=== PATIENT | female | born 1975 | race Caucasian/White ===

== ENCOUNTER 2016-10-20 09:23 | Inpatient (IN) | payer BC ==
[2016-10-20 11:31] VITALS: BMI 28.8
--- NOTE | 2016-10-20 13:01 | HP ---
COWS - Scale Resting Pulse: 0= [place] 80 or Below Sweatin= Chills/Flushing Restless Observation: 3= Extraneous Movement Pupil Size: 0= Normal to Room Light Bone or Joint Aches: 4=Acute Joint/Muscle Pain Runny Nose/ Eye Tearin= Nasal Congestion GI Upset > 30mins: 0= None Tremor Observation: 1= Tremor [place], Not Seen Yawning Observation: 1= 1-2x During Session Anxiety or Irritability: 2=Irritable/Anxious Goose Flesh Skin: 0=Smooth Skin COWS Score: 13 CIWA Score - CIWA Score Nausea/Vomitin-No Nausea/No Vomiting Muscle Tremors: 3 Anxiety: 5 Agitation: 4-Moderately Restless Paroxysmal Sweats: 1-Minimal Palms Moist Orientation: 0-Oriented Tacttile Disturbances: 3-Moderate Itch/Numb/Burn Auditory Disturbances: 0-None Visual Disturbances: 0-None Headache: 0-None Present CIWA-Ar Total Score: 16 Admission [facility] - HPI Chief Complaint: DETOX TX FOR HEROIN AND ALCOHOL DEPENDENCE. History of Present Illness: 41 Y/O FEMALE WITH A HX OF HEROIN AND ALCOHOL AND CRACK/COCAINE DEPENDENCE SEEKING DETOX TX. Exam Limitations: No Limitations - Ebola screening Have you traveled outside of the country in the last 21 days: No Have you had contact with anyone from an Ebola affected area: No Have you been sick,other than usual withdrawal symptoms: No Do you have a fever: No - Review of Systems Constitutional: Chills, Night Sweats, Changes in sleep, Unintentional Wgt. Loss EENT: reports: Blurred Vision, Nose Congestion Respiratory: reports: Shortness of Breath (HX ASTHMA), Wheezing Cardiac: reports: Lightheadedness GI: reports: Constipated, Diarrhea, Nausea, Vomiting, Indigestion, Abdominal cramping : reports: No Symptoms Reported Musculoskeletal: reports: Back Pain, Joint Pain, Muscle Pain Integumentary: reports: Bruising Neuro: reports: Headache, Tremors, Dizziness Endocrine: reports: No Symptoms Reported Hematology: reports: Easy Bruising Psychiatric: reports: Orientated x3, Anxious Other Systems: Reviewed and Negative Patient History - Patient Medical History Hx Anemia: No Hx Asthma: Yes (MDI) Hx Chronic Obstructive Pulmonary Disease (COPD): No Hx Cardiac Disorders: No Hx Hypertension: No Hx Hypercholesterolemia: No HX Cerebrovascular Accident: No Hx Seizures: No Hx Diabetes: No Hx Gastrointestinal Disorders: No Hx Genitourinary Disorders: No Hx Sexually Transmitted Disorders: No Hx Renal Disease (ESRD): No Hx Thyroid Disease: No Hx Human Immunodeficiency Virus (HIV): No (NEGATIVE HX) Hx Hepatitis C: No (NEGATIVE HX) Hx Depression: No (DENIES) Hx Suicide Attempt: No (DENIES) Hx Bipolar Disorder: No Hx Schizophrenia: No - Patient Surgical History Past Surgical History: No Hx Neurologic Surgery: No Hx Cataract Extraction: No Hx Cardiac Surgery: No Hx Lung Surgery: No Hx Breast Surgery: No Hx Breast Biopsy: No Hx Abdominal Surgery: No Hx Appendectomy: No Hx Cholecystectomy: No Hx Genitourinary Surgery: No Hx Section: No Hx Orthopedic Surgery: No Hx Hysterectomy: No Anesthesia Reaction: No - PPD History Previous Implant?: Yes Documented Results: Negative w/o proof Implanted On Prior [facility] Admission?: No PPD to be Administered?: Yes - Reproductive History Patient is a Female of Child Bearing Age (11 -55 yrs old): Yes Last Menstrual Period: 10/13/16 Patient : No - Smoking Cessation Smoking history: Never smoked (PT STATES "I DON'T SMOKE CIGARRETE, PERIOD".) Have you smoked in the past 12 months: No Hx Chewing Tobacco Use: No Initiated information on smoking cessation: No - Substance & Tx. History Hx Alcohol Use: Yes (LIQUOR/BEER) Hx Substance Use: Yes (HEROIN) Substance Use Type: Alcohol, Heroin Hx Substance Use Treatment: Yes (DID NOT GIVE INFORMATION LAST TX) - Substances Abused Alcohol Route: Oral Frequency: Daily Amount used: 2 PTS LIQUOR/BEER 3 CAN Age of first use: 20 Date of Last Use: 10/20/16 Heroin Route: Inhalation Frequency: Daily Amount used: 10-20 BAGS Age of first use: 20 Date of Last Use: 10/20/16 Family Disease History - Family Disease History Family Disease History: Diabetes: Mother Admission Physical Exam [facility] - Vital Signs Vital Signs: Vital Signs - 24 hr 10/20/16 11:27 Temperature 96.5 F L Pulse Rate 20 L Respiratory 18 Rate Blood Pressure 113/70 - Physical General Appearance: Yes: Moderate Distress, Alcohol on Breath, Intoxicated, Irritable, Anxious, Other (PT EXHIBITING AGITATION/INPATIENCE AND VERY IRRITABLE AND ANGRY WHEN ASKED ASSESSMENT QUESTIONS.) HEENTM: Yes: EOMI, Normocephalic, STEVE, Pharynx Normal, Nasal Congestion, Rhinorrhea Respiratory: Yes: Chest Non-Tender, Lungs Clear, Normal Breath Sounds, No Respiratory Distress Neck: Yes: Supple, Trachea in good position Breast: Yes: Breast Exam Deferred Cardiology: Yes: Regular Rhythm, Regular Rate, S1, S2 Abdominal: Yes: Normal Bowel Sounds, Non Tender, Soft Genitourinary: Yes: Other (N/C) Musculoskeletal: Yes: full range of Motion, Gait Steady Extremities: Yes: Normal Range of Motion, Non-Tender Neurological: Yes: sales vice president II-XII NML intact, Fully Oriented, Alert, Motor Strength 5/5 Integumentary: Yes: Dry, Warm, Other (ECHYMOTIC AREAS ON ANKLES) Lymphatic: Yes: Within Normal Limits - Diagnostic (1) Uncomplicated opioid dependence Current Visit: Yes Status: Acute (2) Alcohol dependence with uncomplicated withdrawal Current Visit: Yes Status: Acute (3) History of asthma Current Visit: Yes Status: Chronic Cleared for Admission [facility] - Detox or Rehab [facility] Level of Care: Medically Managed Detox Regimen/Protocol: Methadone/Librium [facility] Breath Alcohol Content Breath Alcohol Content: 0.039 Urine Drug Screen - Results Drug Screen Negative: No Urine Drug Screen Results: FAISAL-Cocaine, OPI-Opiates
[2016-10-20] MEDS ORDERED: MAGNESIUM CITRATE 300 ML BOTTLE PO PRN (15:18)
[2016-10-20] MEDS ORDERED: MAG HYDROX/AL HYDROX/SIMETH 30 ML UNIT-DOSE CUP PO PRN (15:18)
[2016-10-20] MEDS ORDERED: guaiFENesin/D-METHORPHAN HB 10 ML UNIT-DOSE CUPS PO PRN (15:18)
[2016-10-20] MEDS ORDERED: P-EPHED 60MG/TRIPROLIDI 2.5MG TABLET PO PRN (15:18)
[2016-10-20] MEDS ORDERED: MENTHOL/PHENOL 1 EACH UD MM PRN (15:18)
[2016-10-20] MEDS ORDERED: LOPERAMIDE HCL 2 MG CAPSULE PO PRN (15:18)
[2016-10-20] MEDS ORDERED: ACETAMINOPHEN 325 MG TABLET (FP) PO PRN (15:18)
[2016-10-20] MEDS ORDERED: IBUPROFEN 400 MG TABLET (FP) PO PRN (15:18)
[2016-10-20] MEDS ORDERED: METHADONE HCL 10 MG TABLET (FOR DETOX USE ONLY) PO ONE ×2 (17:00→23:00)
[2016-10-20] MEDS: chlordiazePOXIDE HCL 25 MG CAPSULE PO SCH ×2 (17:06→22:16)
[2016-10-20] MEDS ORDERED: DOCUSATE SODIUM 100 MG CAPSULE (FP) PO SCH (22:00)
[2016-10-20] MEDS: diphenhydrAMINE HCL 50 MG CAPSULE PO PRN (22:15)
[2016-10-20] MEDS: THIAMINE HCL 100 MG TABLET (FP) PO SCH (22:15)
[2016-10-20] MEDS: ALBUTEROL SO4 6.7 GM HFA INHALER IH PRN (22:34)
[2016-10-20 23:08] LABS: URINE APPEARANCE SLCLOUDY; URINE COLOR AMBER; URINE GLUCOSE (UA) NEGATIVE (NEGATIVE); URINE KETONE TRACE (NEGATIVE); URINE NITRITE POSITIVE (NEGATIVE); URINE UROBILINOGEN 4.0 E.U/dl mg/dL (0.2-1.0)
[2016-10-20 23:13] LABS: URINE BLOOD 1+ (NEGATIVE); URINE LEUK ESTERASE 1+ (NEGATIVE); URINE PROTEIN 1+ (NEGATIVE)
[2016-10-20 23:20] LABS: URINE HYALINE CAST 3 /lpf; URINE MUCUS MANY; URINE RBC 37 /hpf (0-3); URINE WBC 52 /hpf (3-5)
[2016-10-21] MEDS: chlordiazePOXIDE HCL 25 MG CAPSULE PO SCH ×4 (05:52→22:14)
[2016-10-21] MEDS: ALBUTEROL SO4 6.7 GM HFA INHALER IH PRN ×3 (09:44→22:15)
[2016-10-21] MEDS: MAGNESIUM HYDROX 2400MG/30ML ORAL SUSPENSION 30 ML CUP PO PRN (09:44)
--- NOTE | 2016-10-21 09:53 | PN ---
[facility] CIWA - CIWA Score Nausea/Vomitin-No Nausea/No Vomiting Muscle Tremors: 4-Moderate,w/Arms Extend Anxiety: 3 Agitation: 3 Paroxysmal Sweats: 3 Orientation: 0-Oriented Tacttile Disturbances: 0-None Auditory Disturbances: 0-None Visual Disturbances: 0-None Headache: 1-Very Mild CIWA-Ar Total Score: 14 [facility] COWS - Scale Resting Pulse: 1= [place] 81-100 Sweatin=Flushed/Facial Moisture Restless Observation: 1= Difficult to Sit Still Pupil Size: 0= Normal to Room Light Bone or Joint Aches: 2= Severe Diffuse Aches Runny Nose/ Eye Tearin= Nasal Congestion GI Upset > 30mins: 2= Nausea/Diarrhea Tremor Observation of Outstretched Hands: 2= Slight Tremor Visible Yawning Observation: 2= >3x During Session Anxiety or Irritability: 2=Irritable/Anxious Goose Flesh Skin: 0=Smooth Skin COWS Score: 15 [facility] Progress Note (SOAP) Subjective: sweats shakes interrupted sleep body aches agitation anxiety Objective: 10/21/16 09:50 Vital Signs Temperature 98.4 F 10/21/16 10:00 Pulse Rate 84 10/21/16 10:00 Respiratory Rate 16 10/21/16 10:00 Blood Pressure 133/79 10/21/16 10:00 O2 Sat by Pulse Oximetry (%) Laboratory Tests 10/20/16 19:05 Urine Color Marisol Urine Appearance Slcloudy Urine pH 5.0 Urine Protein 1+ H Urine Glucose (UA) Negative Urine Ketones Trace H Urine Blood 1+ H Urine Nitrite Positive Urine Bilirubin 2.0 Urine Urobilinogen 4.0 e.u/dl H Ur Leukocyte Esterase 1+ H Urine RBC 37 Urine WBC 52 Ur Epithelial Cells Rare Hyaline Casts 3 Urine Mucus Many repeat u/a and C&S labs pending awake/alert ambulating no acute distress Assessment: 10/21/16 09:53 withdrawal sx Plan: continue detox increase fluids repeat u/a with C&S f/u pending labs
[2016-10-21] MEDS ORDERED: METHADONE HCL 10 MG TABLET (FOR DETOX USE ONLY) PO SCH (10:00)
[2016-10-21 10:07] LABS: MCH 29.3 pg (25.7-33.7); MCHC 32.8 g/dl (32.0-36.0); MEAN CELL VOLUME 89.5 fl (80-96); MEAN PLT VOLUME 9.4 fl (7.5-11.1); PLATELET COUNT 187 K/MM3 (134-434); RDW 16.2 % (11.6-15.6); WHITE BLOOD COUNT 6.3 K/mm3 (4.0-10.0)
[2016-10-21] MEDS: PRENATAL VITAMINS W/ FOLIC ACID TABLET (FP) PO SCH (10:12)
[2016-10-21 10:27] LABS: ALBUMIN 2.8 g/dl (3.4-5.0); ALK PHOS 50 U/L (45-117); ANION GAP 8 (8-16); BILIRUBIN,TOTAL 0.2 mg/dL (0.2-1.0); CALCIUM 8.6 mg/dL (8.5-10.1); CO2 32 mmol/L (21-32); CREATININE 0.8 mg/dL (0.55-1.02); GLUCOSE,RANDOM 96 mg/dL (74-106); SGOT/AST 35 U/L (15-37); SGPT/ALT 45 U/L (12-78); TOT PROT 5.6 g/dl (6.4-8.2)
[2016-10-21] MEDS: chlordiazePOXIDE HCL 25 MG CAPSULE PO PRN (14:34)
[2016-10-21 16:39] LABS: URINE APPEARANCE CLEAR; URINE BILIRUBIN NEGATIVE (NEGATIVE); URINE COLOR STRAW; URINE GLUCOSE (UA) NEGATIVE (NEGATIVE); URINE KETONE NEGATIVE (NEGATIVE); URINE NITRITE NEGATIVE (NEGATIVE); URINE PROTEIN NEGATIVE (NEGATIVE); URINE UROBILINOGEN NEGATIVE mg/dL (0.2-1.0)
[2016-10-21 16:43] LABS: URINE BLOOD 1+ (NEGATIVE); URINE LEUK ESTERASE 2+ (NEGATIVE)
--- NOTE | 2016-10-21 17:13 | EKG ---
Test Reason : Blood Pressure : / mmHG Vent. Rate : 073 BPM Atrial Rate : 073 BPM P-R Int : 108 ms QRS Dur : 084 ms QT Int : 370 ms P-R-T Axes : 013 068 047 degrees QTc Int : 407 ms SINUS RHYTHM WITH SHORT [place] SEPTAL INFARCT , AGE UNDETERMINED OR RELATED TO TECHNICAL AND/OR POSITIONAL FACTORS ABNORMAL ECG NO PREVIOUS ECGS AVAILABLE CORELATE AND REPEAT INDICATED Confirmed by SHEIKH SAVITA, QUIANA ([id number] on 10/21/2016 5:12:44 PM Referred By: Selwyn Silva Confirmed By:QUIANA CALVO MD
[2016-10-21 17:49] LABS: URINE BACTERIA RARE /hpf (NONE SEEN); URINE MUCUS RARE; URINE RBC <1 /hpf (0-3); URINE WBC 10 /hpf (3-5)
[2016-10-21] MEDS: THIAMINE HCL 100 MG TABLET (FP) PO SCH (22:14)
[2016-10-21] MEDS: diphenhydrAMINE HCL 50 MG CAPSULE PO PRN (22:14)
[2016-10-22] MEDS: chlordiazePOXIDE HCL 25 MG CAPSULE PO SCH ×2 (05:36→10:26)
[2016-10-22] MEDS: ALBUTEROL SO4 6.7 GM HFA INHALER IH PRN ×3 (07:58→18:21)
[2016-10-22] MEDS: PRENATAL VITAMINS W/ FOLIC ACID TABLET (FP) PO SCH (10:25)
[2016-10-22] MEDS: METHADONE HCL 5 MG TABLET (FOR DETOX USE ONLY) PO SCH (10:26)
--- NOTE | 2016-10-22 10:34 | CONSULT ---
[facility] Psychiatric Consult - Data Date of interview: 10/22/16 Admission source: [facility] Identifying data: This is 41 years old female with no psychiatric hospitalization history intoxicated with: Alcohol, Xanax Substance Abuse History: - Smoking Cessation. Smoking history: Never smoked ( PT STATES "I DON'T SMOKE CIGARRETE, PERIOD".). Have you smoked in the past 12 months: No. Hx Chewing Tobacco Use: No. Initiated information on smoking cessation: No. - Substance & Tx. History. Hx Alcohol Use: Yes (LIQUOR/BEER). Hx Substance Use: Yes (HEROIN). Substance Use Type: Alcohol, Heroin. Hx Substance Use Treatment: Yes (DID NOT GIVE INFORMATION LAST TX). - Substances Abused. Alcohol. Route: Oral. Frequency: Daily. Amount used: 2 PTS LIQUOR /BEER 3 CAN. Age of first use: 20. Date of Last Use: 10/20/16. Heroin. Route: Inhalation. Frequency: Daily. Amount used: 10-20 BAGS. Age of first use: 20. Date of Last Use: 10/20/16 Medical History: Asthma Psychiatric History: Patient reports history of depression and anxiety, reports taking prior to admission: Gabapentin 400mg po tid. Trazodone 100mg po qhs Physical/Sexual Abuse/Trauma History: Denies Additional Comment: Gabapentin 400mg po tid. Trazodone 100mg po qhs Mental Status Exam - Mental Status Exam Alert and Oriented to: Person Cognitive Function: Fair Patient Appearance: Unkempt Mood: Sad Affect: Flat Patient Behavior: Sedated Speech Pattern: Delayed Voice Loudness: Mildly Soft/Quiet Thought Process: Circumstantial Thought Disorder: Being Controlled Hallucinations: Denies Suicidal Ideation: Denies Homicidal Ideation: Denies Insight/Judgement: Fair Sleep: Difficulty falling asleep Appetite: Weight gain Muscle strength/Tone: Mild Hypotonicity Gait/Station: Normal Additional Comments: Gabapentin 400mg po tid. Trazodone 100mg po qhs Psychiatric Findings - Problem List ([place] 1, 2,3) (1) Alcohol dependence with uncomplicated withdrawal Current Visit: Yes Status: Acute (2) Uncomplicated opioid dependence Current Visit: Yes Status: Acute (3) Drug-induced mood disorder Current Visit: Yes Status: Acute (4) Xanax use disorder, mild, abuse Current Visit: Yes Status: Acute - Initial Treatment Plan Initial Treatment Plan: Gabapentin 400mg po tid. Trazodone 100mg po qhs
--- NOTE | 2016-10-22 11:06 | PN ---
[facility] CIWA - CIWA Score Nausea/Vomitin-No Nausea/No Vomiting Muscle Tremors: 4-Moderate,w/Arms Extend Anxiety: 3 Agitation: 4-Moderately Restless Paroxysmal Sweats: 3 Orientation: 0-Oriented Tacttile Disturbances: 0-None Auditory Disturbances: 0-None Visual Disturbances: 0-None Headache: 0-None Present CIWA-Ar Total Score: 14 S COWS - Scale Resting Pulse: 1= [place] 81-100 Sweatin= Chills/Flushing Restless Observation: 1= Difficult to Sit Still Pupil Size: 0= Normal to Room Light Bone or Joint Aches: 2= Severe Diffuse Aches Runny Nose/ Eye Tearin= Nasal Congestion GI Upset > 30mins: 0= None Tremor Observation of Outstretched Hands: 2= Slight Tremor Visible Yawning Observation: 2= >3x During Session Anxiety or Irritability: 2=Irritable/Anxious Goose Flesh Skin: 0=Smooth Skin COWS Score: 12 [facility] Progress Note (SOAP) Subjective: irritable agitation sweats body aches Objective: 10/22/16 11:06 Vital Signs Temperature 97.3 F L 10/22/16 06:49 Pulse Rate 73 10/22/16 06:49 Respiratory Rate 18 10/22/16 06:49 Blood Pressure 132/73 10/22/16 06:49 O2 Sat by Pulse Oximetry (%) Laboratory Tests 10/20/16 10/21/16 10/21/16 19:05 06:30 06:30 WBC 6.3 RBC 4.12 Hgb 12.1 Hct 36.9 MCV 89.5 MCH 29.3 MCHC 32.8 RDW 16.2 H Plt Count 187 MPV 9.4 Sodium 142 Potassium 3.7 Chloride 102 Carbon Dioxide 32 Anion Gap 8 BUN 12 Creatinine 0.8 Creat Clearance w eGFR > 60 Random Glucose 96 Calcium 8.6 Total Bilirubin 0.2 AST 35 ALT 45 Alkaline Phosphatase 50 Total Protein 5.6 L Albumin 2.8 L Urine Color Marisol Urine Appearance Slcloudy Urine pH 5.0 Ur Specific [place] >= 1.030 H Urine Protein 1+ H Urine Glucose (UA) Negative Urine Ketones Trace H Urine Blood 1+ H Urine Nitrite Positive Urine Bilirubin 2.0 Urine Urobilinogen 4.0 e.u/dl H Ur Leukocyte Esterase 1+ H Urine RBC 37 Urine WBC 52 Ur Epithelial Cells Rare Urine Bacteria Hyaline Casts 3 Urine Mucus Many RPR Titer 10/21/16 10/21/16 06:30 12:00 WBC RBC Hgb Hct MCV MCH MCHC RDW Plt Count MPV Sodium Potassium Chloride Carbon Dioxide Anion Gap BUN Creatinine Creat Clearance w eGFR Random Glucose Calcium Total Bilirubin AST ALT Alkaline Phosphatase Total Protein Albumin Urine Color Straw Urine Appearance Clear Urine pH 7.0 D Ur Specific [place] 1.010 Urine Protein Negative Urine Glucose (UA) Negative Urine Ketones Negative Urine Blood 1+ H Urine Nitrite Negative Urine Bilirubin Negative Urine Urobilinogen Negative Ur Leukocyte Esterase 2+ H Urine RBC <1 Urine WBC 10 Ur Epithelial Cells Rare Urine Bacteria Rare Hyaline Casts Urine Mucus Rare RPR Titer Nonreactive awake/alert ambulating no acute distress Assessment: 10/22/16 11:07 withdrawal sx Plan: continue detox increase fluids
[2016-10-22] MEDS: GABAPENTIN 400 MG CAPSULE (FP) PO SCH ×2 (14:09→22:33)
[2016-10-22] MEDS: chlordiazePOXIDE HCL 25 MG CAPSULE PO PRN (14:09)
[2016-10-22] MEDS: chlordiazePOXIDE 5 MG CAPSULE PO SCH ×2 (17:54→22:33)
[2016-10-22] MEDS: diphenhydrAMINE HCL 50 MG CAPSULE PO PRN (22:32)
[2016-10-22] MEDS: traZODone HCL 100 MG TABLET (FP) PO SCH (22:32)
[2016-10-22] MEDS: THIAMINE HCL 100 MG TABLET (FP) PO SCH (22:33)
[2016-10-23] MEDS: GABAPENTIN 400 MG CAPSULE (FP) PO SCH ×3 (05:32→22:26)
[2016-10-23] MEDS: chlordiazePOXIDE 5 MG CAPSULE PO SCH ×2 (05:32→10:29)
[2016-10-23] MEDS: ALBUTEROL SO4 6.7 GM HFA INHALER IH PRN ×2 (05:33→15:00)
[2016-10-23] MEDS: PRENATAL VITAMINS W/ FOLIC ACID TABLET (FP) PO SCH (10:29)
[2016-10-23] MEDS: METHADONE HCL 5 MG TABLET (FOR DETOX USE ONLY) PO SCH (10:29)
--- NOTE | 2016-10-23 12:12 | PN ---
[facility] Progress Note (SOAP) Subjective: ALERT,IRRITABLE,ANXIOUS,INTERRUPTED SLEEP,PAIN IN THE BODY AND BACK,TREMOR Objective: 10/23/16 12:11 Vital Signs Temperature 98.1 F 10/23/16 10:00 Pulse Rate 99 H 10/23/16 10:00 Respiratory Rate 18 10/23/16 10:00 Blood Pressure 121/76 10/23/16 10:00 O2 Sat by Pulse Oximetry (%) Assessment: 10/23/16 12:12 WITHDRAWAL SYMPTOM Plan: CONTINUE DETOX
[2016-10-23] MEDS: chlordiazePOXIDE HCL 10 MG CAPSULE PO SCH ×2 (17:54→22:26)
[2016-10-23] MEDS: traZODone HCL 100 MG TABLET (FP) PO SCH (22:25)
[2016-10-23] MEDS: diphenhydrAMINE HCL 50 MG CAPSULE PO PRN (22:25)
[2016-10-23] MEDS: THIAMINE HCL 100 MG TABLET (FP) PO SCH (22:26)
[2016-10-24] MEDS: chlordiazePOXIDE HCL 10 MG CAPSULE PO SCH ×2 (06:02→10:55)
[2016-10-24] MEDS: GABAPENTIN 400 MG CAPSULE (FP) PO SCH ×3 (06:02→22:27)
[2016-10-24] MEDS: ALBUTEROL SO4 6.7 GM HFA INHALER IH PRN (06:04)
[2016-10-24] MEDS ORDERED: METHADONE HCL 10 MG TABLET (FOR DETOX USE ONLY) PO SCH (10:00)
[2016-10-24] MEDS: PRENATAL VITAMINS W/ FOLIC ACID TABLET (FP) PO SCH (10:55)
[2016-10-24] MEDS: hydrOXYzine PAMOATE 25 MG CAPSULE (FP) PO PRN ×2 (10:56→19:34)
--- NOTE | 2016-10-24 11:59 | PN ---
[facility] Progress Note (SOAP) Subjective: interrupted sleep Objective: 10/24/16 11:58 Vital Signs Temperature 97.0 F L 10/24/16 10:00 Pulse Rate 111 H 10/24/16 10:00 Respiratory Rate 16 10/24/16 10:00 Blood Pressure 115/69 10/24/16 10:00 O2 Sat by Pulse Oximetry (%) Laboratory Tests 10/20/16 10/21/16 10/21/16 19:05 06:30 06:30 WBC 6.3 RBC 4.12 Hgb 12.1 Hct 36.9 MCV 89.5 MCH 29.3 MCHC 32.8 RDW 16.2 H Plt Count 187 MPV 9.4 Sodium 142 Potassium 3.7 Chloride 102 Carbon Dioxide 32 Anion Gap 8 BUN 12 Creatinine 0.8 Creat Clearance w eGFR > 60 Random Glucose 96 Calcium 8.6 Total Bilirubin 0.2 AST 35 ALT 45 Alkaline Phosphatase 50 Total Protein 5.6 L Albumin 2.8 L Urine Color Marisol Urine Appearance Slcloudy Urine pH 5.0 Ur Specific [place] >= 1.030 H Urine Protein 1+ H Urine Glucose (UA) Negative Urine Ketones Trace H Urine Blood 1+ H Urine Nitrite Positive Urine Bilirubin 2.0 Urine Urobilinogen 4.0 e.u/dl H Ur Leukocyte Esterase 1+ H Urine RBC 37 Urine WBC 52 Ur Epithelial Cells Rare Urine Bacteria Hyaline Casts 3 Urine Mucus Many RPR Titer 10/21/16 10/21/16 06:30 12:00 WBC RBC Hgb Hct MCV MCH MCHC RDW Plt Count MPV Sodium Potassium Chloride Carbon Dioxide Anion Gap BUN Creatinine Creat Clearance w eGFR Random Glucose Calcium Total Bilirubin AST ALT Alkaline Phosphatase Total Protein Albumin Urine Color Straw Urine Appearance Clear Urine pH 7.0 D Ur Specific [place] 1.010 Urine Protein Negative Urine Glucose (UA) Negative Urine Ketones Negative Urine Blood 1+ H Urine Nitrite Negative Urine Bilirubin Negative Urine Urobilinogen Negative Ur Leukocyte Esterase 2+ H Urine RBC <1 Urine WBC 10 Ur Epithelial Cells Rare Urine Bacteria Rare Hyaline Casts Urine Mucus Rare RPR Titer Nonreactive pt aox3 in nad ambulating Assessment: 10/24/16 11:58 withdrawal sx's Plan: cont. detox increase fluids d/c in am
[2016-10-24] MEDS: MAGNESIUM HYDROX 2400MG/30ML ORAL SUSPENSION 30 ML CUP PO PRN (19:34)
[2016-10-24] MEDS: THIAMINE HCL 100 MG TABLET (FP) PO SCH (22:27)
[2016-10-24] MEDS: traZODone HCL 100 MG TABLET (FP) PO SCH (22:27)
[2016-10-24] MEDS: diphenhydrAMINE HCL 50 MG CAPSULE PO PRN (22:28)
[2016-10-25] MEDS: ALBUTEROL SO4 6.7 GM HFA INHALER IH PRN (06:00)
[2016-10-25] MEDS ORDERED: METHADONE HCL 5 MG TABLET (FOR DETOX USE ONLY) PO SCH (06:00)
[2016-10-25] MEDS: GABAPENTIN 400 MG CAPSULE (FP) PO SCH (06:01)
[2016-10-25 06:30] VITALS: BP 104/57; PULSE 84; TEMP 97.1
--- NOTE | 2016-10-25 08:15 | DS ---
[facility] Detox Discharge Summary Admission Date: 10/20/16 Discharge Date: 10/25/16 - History Present History: Alcohol Dependence, Opioid Dependence, Sedative Dependence Additional Comments: follow up with after care program as arrangement Pertinent Past History: asthma - Physical Exam Results Vital Signs: Vital Signs Temperature 97.1 F L 10/25/16 06:29 Pulse Rate 84 10/25/16 06:29 Respiratory Rate 18 10/25/16 06:29 Blood Pressure 104/57 10/25/16 06:29 O2 Sat by Pulse Oximetry (%) - Treatment Hospital Course: Detox Protocol Followed, Detoxed Safely, Responded well, Discharged Condition Good, Rehab Referral Accepted Patient has Accepted a Rehab Referral [facility]: [facility] - Medication Discharge Medications: Ambulatory Orders Albuterol Sulfate Inhaler - [Ventolin Hfa Inhaler -] 2 inh PO Q4H PRN 10/20/16 Gabapentin [Neurontin -] 400 mg PO TID #90 cap 10/22/16 Trazodone HCl [Desyrel -] 100 mg PO HS #30 tablet 10/22/16 - Diagnosis (1) Alcohol dependence with uncomplicated withdrawal Current Visit: Yes Status: Acute (2) Drug-induced mood disorder Current Visit: Yes Status: Acute (3) Uncomplicated opioid dependence Current Visit: Yes Status: Acute (4) Xanax use disorder, mild, abuse Current Visit: Yes Status: Acute (5) History of asthma Current Visit: Yes Status: Chronic - AMA Did Patient Leave Against Medical Advice: No
== END 2016-10-25 08:55 | disposition home or self-care (01) | DRG 773 ==
LOC: YASAS 09:23 → Y6N 15:57
PROVIDERS: ADMIT Internal Medicine Addiction Medicine; ATTEND Internal Medicine Addiction Medicine
PROC: HZ2ZZZZ Detoxification Services for Substance Abuse Treatment (ICD-10-PCS; principal; 2016-10-25)
DX: F11.20 Opioid dependence, uncomplicated (principal); F10.230 Alcohol dependence with withdrawal, uncomplicated; F13.10 Sedative, hypnotic or anxiolytic abuse, uncomplicated; F19.24 Other psychoactive substance dependence with psychoactive substance-induced mood disorder; F41.8 Other specified anxiety disorders; J45.909 Unspecified asthma, uncomplicated
CPT/HCPCS: 36415; 80053; 81003; 81015; 85027; 86593; 87086; 93005; 93010

== ENCOUNTER 2017-02-18 10:49 | Inpatient (IN) | payer BC ==
[2017-02-18 11:10] VITALS: BMI 23.5
--- NOTE | 2017-02-18 13:42 | HP ---
COWS - Scale Resting Pulse: 0= [place] 80 or Below Sweatin=Flushed/Facial Moisture Restless Observation: 3= Extraneous Movement Pupil Size: 2= Moderately Dilated Bone or Joint Aches: 2= Severe Diffuse Aches Runny Nose/ Eye Tearin= Runny Nose/Eyes GI Upset > 30mins: 3= Vomiting/Diarrhea Tremor Observation: 2= Slight Tremor Visible Yawning Observation: 2= >3x During Session Anxiety or Irritability: 2=Irritable/Anxious Goose Flesh Skin: 0=Smooth Skin COWS Score: 20 CIWA Score - CIWA Score Nausea/Vomitin Muscle Tremors: 3 Anxiety: 3 Agitation: 2 Paroxysmal Sweats: 1-Minimal Palms Moist Orientation: 0-Oriented Tacttile Disturbances: 1-Very Mild Itch/Numbness Auditory Disturbances: 1-Very Mild Visual Disturbances: 0-None Headache: 2-Mild CIWA-Ar Total Score: 16 Admission ROS [facility] - HPI Chief Complaint: i need help to stop using heroin,alcohol,cocaine Allergies/Adverse Reactions: Allergies Allergy/AdvReac Type Severity Reaction Status Date / Time No Known Allergies Allergy Verified 02/18/17 13:39 History of Present Illness: this 41 years old female with heroin,alcohol and cocaine dependence,seeking detox,last treatment [facility] 10/20/16 to 10/25/16 anxiety and depression asthma multiple admissions in the past longest period of sobriety 4 years Exam Limitations: No Limitations - Ebola screening Have you traveled outside of the country in the last 21 days: No (.) Have you had contact with anyone from an Ebola affected area: No Have you been sick,other than usual withdrawal symptoms: No - Review of Systems Constitutional: Chills, Loss of Appetite, Malaise, Night Sweats, Changes in sleep, Weakness, Unintentional Wgt. Loss EENT: reports: Tearing, Nose Congestion Respiratory: reports: No Symptoms reported Cardiac: reports: No Symptoms Reported GI: reports: Diarrhea, Nausea, Poor Fluid Intake, Vomiting : reports: No Symptoms Reported Musculoskeletal: reports: Back Pain, Joint Pain, Muscle Pain, Joint Stiffness Integumentary: reports: Dryness Neuro: reports: Headache, Tremors Endocrine: reports: No Symptoms Reported Hematology: reports: No Symptoms Reported Psychiatric: reports: No Sypmtoms Reported, Judgement Intact, Mood/Affect Appropiate, Orientated x3, Depressed Patient History - Patient Medical History Hx Anemia: No Hx Asthma: Yes (MDI) Hx Chronic Obstructive Pulmonary Disease (COPD): No Hx Cancer: No Hx Cardiac Disorders: No Hx Congestive Heart Failure: No Hx Hypertension: No Hx Hypercholesterolemia: No Hx Pacemaker: No HX Cerebrovascular Accident: No Hx Seizures: No Hx Dementia: No Hx Diabetes: No Hx Gastrointestinal Disorders: No Hx Liver Disease: No Hx Genitourinary Disorders: No Hx Sexually Transmitted Disorders: No Hx Renal Disease (ESRD): No Hx Thyroid Disease: No Hx Human Immunodeficiency Virus (HIV): No (NEGATIVE HX last 02/20) Hx Hepatitis C: No (NEGATIVE HX) Hx Depression: No (DENIES) Hx Suicide Attempt: No (DENIES) Hx Bipolar Disorder: No Hx Schizophrenia: No Other Medical History: no suicidal,no homicidal - Patient Surgical History Past Surgical History: No Hx Neurologic Surgery: No Hx Cataract Extraction: No Hx Cardiac Surgery: No Hx Lung Surgery: No Hx Breast Surgery: No Hx Breast Biopsy: No Hx Abdominal Surgery: No Hx Appendectomy: No Hx Cholecystectomy: No Hx Genitourinary Surgery: No Hx Section: No Hx Orthopedic Surgery: No Hx Hysterectomy: No Anesthesia Reaction: No - PPD History Previous Implant?: Yes Documented Results: Negative w/proof [facility]planted On [facility]?: No Date: 10/22/16 Results: 0 mm PPD to be Administered?: No - Reproductive History Patient is a Female of Child Bearing Age (11 -55 yrs old): Yes Last Menstrual Period: 10/13/16 Patient : No - Smoking Cessation Smoking history: Never smoked (PT STATES "I DON'T SMOKE CIGARRETE, PERIOD".) Have you smoked in the past 12 months: No Hx Chewing Tobacco Use: No - Substance & Tx. History Hx Alcohol Use: Yes Hx Substance Use: Yes Substance Use Type: Alcohol, Cocaine, Heroin Hx Substance Use Treatment: Yes (10/20/16 to 10/25/16 [facility]) - Substances Abused Heroin Route: Inhalation Frequency: Daily Amount used: 10-20 BAGS Age of first use: 19 Date of Last Use: 02/18/17 Crack Route: Smoking Frequency: Daily Amount used: 1-2 GRAMS Age of first use: 24 Date of Last Use: 02/17/17 Alcohol Route: Oral Frequency: Daily Amount used: 1 [place] Age of first use: 29 Date of Last Use: 02/16/17 Family Disease History - Family Disease History Family Disease History: Diabetes: Mother Admission Physical Exam [facility] - Vital Signs Vital Signs: Vital Signs - 24 hr 02/18/17 11:02 Temperature 97.1 F L Pulse Rate 80 Respiratory 18 Rate Blood Pressure 104/69 - Physical General Appearance: Yes: Moderate Distress, Tremorous, Irritable, Sweating, Anxious HEENTM: Yes: Normal ENT Inspection, STEVE, Pharynx Normal Respiratory: Yes: Lungs Clear, Normal Breath Sounds, No Respiratory Distress Neck: Yes: Within Normal Limits Breast: Yes: Breast Exam Deferred Cardiology: Yes: Within Normal Limits, Regular Rhythm, Regular Rate, S1, S2 Abdominal: Yes: Within Normal Limits, Normal Bowel Sounds, Soft Genitourinary: Yes: Within Normal Limits Back: Yes: Muscle Spasm Musculoskeletal: Yes: full range of Motion, Back pain, Muscle Pain Extremities: Yes: Tremors Neurological: Yes: Within Normal Limits, precision lathe operator II-XII NML intact, Alert, Motor Strength 5/5 Integumentary: Yes: Dry, [place] Lymphatic: Yes: Within Normal Limits - Diagnostic (1) Opioid dependence with withdrawal Current Visit: Yes Status: Acute (2) Alcohol dependence with uncomplicated withdrawal Current Visit: Yes Status: Acute (3) Cocaine dependence Current Visit: Yes Status: Acute (4) Asthma Current Visit: Yes Status: Acute (5) Insomnia secondary to depression with anxiety Current Visit: Yes Status: Acute (6) Weight loss Current Visit: Yes Status: Acute Cleared for Admission [facility] - Detox or Rehab [facility] Level of Care: Medically Managed Detox Regimen/Protocol: Methadone/Librium [facility] Breath Alcohol Content Breath Alcohol Content: 0 Urine Pregancy Test - Result Urine Test Results: Negative- NO Line Present Urine Drug Screen - Results Drug Screen Negative: No Urine Drug Screen Results: FAISAL-Cocaine, OPI-Opiates
[2017-02-18] MEDS ORDERED: MAGNESIUM CITRATE 300 ML BOTTLE PO PRN (13:57)
[2017-02-18] MEDS ORDERED: MAGNESIUM HYDROX 2400MG/30ML ORAL SUSPENSION 30 ML CUP PO PRN (13:57)
[2017-02-18] MEDS ORDERED: LOPERAMIDE HCL 2 MG CAPSULE PO PRN (13:57)
[2017-02-18] MEDS ORDERED: hydrOXYzine PAMOATE 25 MG CAPSULE (FP) PO PRN (13:57)
[2017-02-18] MEDS ORDERED: MENTHOL/PHENOL 1 EACH UD MM PRN (13:57)
[2017-02-18] MEDS ORDERED: MAG HYDROX/AL HYDROX/SIMETH 30 ML UNIT-DOSE CUP PO PRN (13:57)
[2017-02-18] MEDS ORDERED: chlordiazePOXIDE HCL 25 MG CAPSULE PO PRN (13:57)
[2017-02-18] MEDS ORDERED: P-EPHED 60MG/TRIPROLIDI 2.5MG TABLET PO PRN (13:57)
[2017-02-18] MEDS ORDERED: IBUPROFEN 400 MG TABLET (FP) PO PRN (13:57)
[2017-02-18] MEDS ORDERED: guaiFENesin/D-METHORPHAN HB 10 ML UNIT-DOSE CUPS PO PRN (13:57)
[2017-02-18] MEDS ORDERED: chlordiazePOXIDE HCL 25 MG CAPSULE PO ONE (14:02)
[2017-02-18] MEDS ORDERED: METHADONE HCL 10 MG TABLET (FOR DETOX USE ONLY) PO ONE ×2 (14:03→23:00)
[2017-02-18] MEDS: ALBUTEROL SO4 18 GM HFA INHALER IH PRN (15:17)
[2017-02-18] MEDS: chlordiazePOXIDE HCL 25 MG CAPSULE PO SCH ×2 (17:04→22:10)
--- NOTE | 2017-02-18 17:13 | CONSULT ---
[facility] Psychiatric Consult - Data Date of interview: 02/18/17 Admission source: [facility] Identifying data: Readmission to [facility] for this 41 y/o female seeking detox treatment on for alcohol,heroin and cocaine dependence.Patient is ,a mother of three,domiciled,unemployed and supported on Public Assistance. Substance Abuse History: Active use of heroin,cocaine and alcohol is reported by patient in this session.See [facility] report for details. Smoking history: none. Have you smoked in the past 12 months: No. Hx Chewing Tobacco Use: No. - Substance & Tx. History. Hx Alcohol Use: Yes. Hx Substance Use: Yes. Substance Use Type: Alcohol, Cocaine, Heroin. Hx Substance Use Treatment: Yes ( 10/20/16 to 10/25/16 [facility]). - Substances Abused. Heroin. Route: Inhalation. Frequency: Daily. Amount used: 10-20 BAGS. Age of first use: 19. Date of Last Use: 02/18/17. Crack. Route: Smoking. Frequency: Daily. Amount used: 1-2 GRAMS. Age of first use: 24. Date of Last Use: 02/17/17. Alcohol. Route: Oral. Frequency: Daily. Amount used: 1 [place]. Age of first use: 29. Date of Last Use: 02/16/17 Medical History: Bronchial asthma. Psychiatric History: Patient admits to two psychiatric hospitalizations at [facility].Not able to remember exact dates of admission.Diagnosed with MDD and Anxiety Disorder.Used to be prescribed gabapentin and trazodone.Totally non-adherent to OPD care and medications ( several weeks of non compliance).Ms French declares that she has no intention to get back on her medications with the exception of detoxification protocol.Denies history of suicide attempts. Physical/Sexual Abuse/Trauma History: Domain not discussed in this session : patient declines. Additional Comment: Urine Drug Screen Results: FAISAL-Cocaine, OPI-Opiates.Noted. Mental Status Exam - Mental Status Exam Alert and Oriented to: Time, Place, Person Cognitive Function: Grossly Intact Patient Appearance: Unkempt, Disheveled Mood: Angry, Nervous, Withdrawn, Irritable Affect: Mood Congruent Patient Behavior: Fatigued, Guarded, Cooperative (marginally cooperative) Speech Pattern: Clear, Appropriate Voice Loudness: Normal Thought Process: Intact, Goal Oriented Thought Disorder: Not Present Hallucinations: Denies Suicidal Ideation: Denies Homicidal Ideation: Denies Insight/Judgement: Poor Sleep: Well Appetite: Good Muscle strength/Tone: Normal Gait/Station: Normal Psychiatric Findings - Problem List ([place] 1, 2,3) (1) Opioid dependence with withdrawal Current Visit: Yes Status: Acute (2) Alcohol dependence with uncomplicated withdrawal Current Visit: Yes Status: Acute (3) Cocaine dependence Current Visit: Yes Status: Acute (4) Drug-induced mood disorder Current Visit: Yes Status: Acute - Initial Treatment Plan Initial Treatment Plan: Psychoeducation.Sleep hygiene.Detoxification.Patient REFUSED psychopharmacotherapy.Made aware of risks of negation of treatment.Observation.
[2017-02-18] MEDS: THIAMINE HCL 100 MG TABLET (FP) PO SCH (22:10)
[2017-02-18 22:24] LABS: URINE APPEARANCE CLOUDY; URINE BILIRUBIN NEGATIVE (NEGATIVE); URINE BLOOD NEGATIVE (NEGATIVE); URINE COLOR YELLOW; URINE GLUCOSE (UA) NEGATIVE (NEGATIVE); URINE KETONE NEGATIVE (NEGATIVE); URINE NITRITE NEGATIVE (NEGATIVE); URINE PROTEIN NEGATIVE (NEGATIVE); URINE UROBILINOGEN NEGATIVE mg/dL (0.2-1.0)
[2017-02-19] MEDS: ALBUTEROL SO4 18 GM HFA INHALER IH PRN ×2 (04:57→19:29)
[2017-02-19] MEDS: chlordiazePOXIDE HCL 25 MG CAPSULE PO SCH ×4 (06:27→22:11)
[2017-02-19] MEDS ORDERED: METHADONE HCL 10 MG TABLET (FOR DETOX USE ONLY) PO SCH (10:00)
[2017-02-19] MEDS: PRENATAL VITAMINS W/ FOLIC ACID TABLET (FP) PO SCH (10:30)
[2017-02-19 10:31] LABS: MCH 27.9 pg (25.7-33.7); MCHC 31.8 g/dl (32.0-36.0); MEAN CELL VOLUME 87.8 fl (80-96); MEAN PLT VOLUME 9.5 fl (7.5-11.1); PLATELET COUNT 263 K/MM3 (134-434); RDW 16.6 % (11.6-15.6); WHITE BLOOD COUNT 8.6 K/mm3 (4.0-10.0)
[2017-02-19 10:52] LABS: ALBUMIN 3.2 g/dl (3.4-5.0); ANION GAP 5 (8-16); BILIRUBIN,TOTAL 0.5 mg/dL (0.2-1.0); CALCIUM 8.3 mg/dL (8.5-10.1); CO2 30 mmol/L (21-32); CREATININE 0.8 mg/dL (0.55-1.02); GLUCOSE,RANDOM 100 mg/dL (74-106); SGOT/AST 9 U/L (15-37); SGPT/ALT 23 U/L (12-78)
[2017-02-19 10:54] LABS: ALK PHOS 64 U/L (45-117); TOT PROT 6.3 g/dl (6.4-8.2)
[2017-02-19 10:55] LABS: URINE LEUK ESTERASE Negative (NEGATIVE)
--- NOTE | 2017-02-19 12:35 | EKG ---
Test Reason : Blood Pressure : / mmHG Vent. Rate : 076 BPM Atrial Rate : 076 BPM P-R Int : 106 ms QRS Dur : 088 ms QT Int : 370 ms P-R-T Axes : 075 076 052 degrees QTc Int : 416 ms SINUS RHYTHM WITH SHORT WI MINIMAL VOLTAGE CRITERIA FOR LVH, MAY BE NORMAL VARIANT BORDERLINE ECG WHEN COMPARED WITH ECG OF 20-OCT-2016 16:12, NO SIGNIFICANT CHANGE WAS FOUND Confirmed by ARY BARNEY, ADWOA ([id number]) on 02/19/2017 12:34:45 PM Referred By: Confirmed By:ADWOA MCALLISTER MD
--- NOTE | 2017-02-19 12:36 | PN ---
S CIWA - CIWA Score Nausea/Vomitin Muscle Tremors: 3 Anxiety: 3 Agitation: 3 Paroxysmal Sweats: 3 Orientation: 1-Uncertain about Date Tacttile Disturbances: 1-Very Mild Itch/Numbness Auditory Disturbances: 1-Very Mild Visual Disturbances: 0-None Headache: 2-Mild CIWA-Ar Total Score: 20 BHS COWS - Scale Resting Pulse: 2= [place] 101-120 Sweatin= Chills/Flushing Restless Observation: 3= Extraneous Movement Pupil Size: 1= Pupils >than Normal Bone or Joint Aches: 2= Severe Diffuse Aches Runny Nose/ Eye Tearin= Runny Nose/Eyes GI Upset > 30mins: 2= Nausea/Diarrhea Tremor Observation of Outstretched Hands: 2= Slight Tremor Visible Yawning Observation: 1= 1-2x During Session Anxiety or Irritability: 2=Irritable/Anxious Goose Flesh Skin: 0=Smooth Skin COWS Score: 18 BHS Progress Note (SOAP) Subjective: ALERT,IRRITABLE,ANXIOUS,INTERRUPTED SLEEP,PAIN IN THE BODY AND BACK,TREMOR Objective: 02/19/17 12:34 Vital Signs Temperature 97.2 F L 02/19/17 10:43 Pulse Rate 106 H 02/19/17 10:43 Respiratory Rate 18 02/19/17 10:43 Blood Pressure 125/72 02/19/17 10:43 O2 Sat by Pulse Oximetry (%) EKG NSR 76/MIN NO CHEST PAIN,NO SOB,NO DIZZINESS Laboratory Last Values WBC 8.6 K/mm3 (4.0-10.0) D 02/19/17 06:00 RBC 4.63 M/mm3 (3.60-5.2) 02/19/17 06:00 Hgb 13.0 GM/dL (10.7-15.3) 02/19/17 06:00 Hct 40.7 % (32.4-45.2) 02/19/17 06:00 MCV 87.8 fl (80-96) 02/19/17 06:00 MCH 27.9 pg (25.7-33.7) 02/19/17 06:00 MCHC 31.8 g/dl (32.0-36.0) L 02/19/17 06:00 RDW 16.6 % (11.6-15.6) H 02/19/17 06:00 Plt Count 263 K/MM3 (134-434) D 02/19/17 06:00 MPV 9.5 fl (7.5-11.1) 02/19/17 06:00 Sodium 143 mmol/L (136-145) 02/19/17 06:00 Potassium 3.7 mmol/L (3.5-5.1) 02/19/17 06:00 Chloride 108 mmol/L (98-107) H 02/19/17 06:00 Carbon Dioxide 30 mmol/L (21-32) 02/19/17 06:00 Anion Gap 5 (8-16) L 02/19/17 06:00 BUN 14 mg/dL (7-18) 02/19/17 06:00 Creatinine 0.8 mg/dL (0.55-1.02) 02/19/17 06:00 Creat Clearance w eGFR > 60 (>60) 02/19/17 06:00 Random Glucose 100 mg/dL (74-106) 02/19/17 06:00 Calcium 8.3 mg/dL (8.5-10.1) L 02/19/17 06:00 Total Bilirubin 0.5 mg/dL (0.2-1.0) D 02/19/17 06:00 AST 9 U/L (15-37) L D 02/19/17 06:00 ALT 23 U/L (12-78) D 02/19/17 06:00 Alkaline Phosphatase 64 U/L (45-117) D 02/19/17 06:00 Total Protein 6.3 g/dl (6.4-8.2) L 02/19/17 06:00 Albumin 3.2 g/dl (3.4-5.0) L 02/19/17 06:00 Urine Color Yellow 02/18/17 18:57 Urine Appearance Cloudy 02/18/17 18:57 Urine pH 5.0 (5.0-8.0) D 02/18/17 18:57 Ur Specific [place] 1.031 (1.001-1.035) 02/18/17 18:57 Urine Protein Negative (NEGATIVE) 02/18/17 18:57 Urine Glucose (UA) Negative (NEGATIVE) 02/18/17 18:57 Urine Ketones Negative (NEGATIVE) 02/18/17 18:57 Urine Blood Negative (NEGATIVE) 02/18/17 18:57 Urine Nitrite Negative (NEGATIVE) 02/18/17 18:57 Urine Bilirubin Negative (NEGATIVE) 02/18/17 18:57 Urine Urobilinogen Negative mg/dL (0.2-1.0) 02/18/17 18:57 Ur Leukocyte Esterase Negative (NEGATIVE) 02/18/17 18:57 RPR Titer Nonreactive (NONREACTIVE) 02/19/17 06:00 Assessment: 02/19/17 12:36 WITHDRAWAL SYMPTOM Plan: CONTINUE DETOX
[2017-02-19] MEDS: THIAMINE HCL 100 MG TABLET (FP) PO SCH (22:11)
[2017-02-20] MEDS: chlordiazePOXIDE HCL 25 MG CAPSULE PO SCH ×2 (05:37→10:22)
[2017-02-20] MEDS: ALBUTEROL SO4 18 GM HFA INHALER IH PRN ×3 (05:39→22:02)
[2017-02-20] MEDS: PRENATAL VITAMINS W/ FOLIC ACID TABLET (FP) PO SCH (10:22)
[2017-02-20] MEDS: METHADONE HCL 5 MG TABLET (FOR DETOX USE ONLY) PO SCH (10:22)
[2017-02-20] MEDS: ACETAMINOPHEN 325 MG TABLET (FP) PO PRN (10:24)
--- NOTE | 2017-02-20 10:26 | PN ---
S CIWA - CIWA Score Nausea/Vomitin Muscle Tremors: 2 Anxiety: 2 Agitation: 2 Paroxysmal Sweats: 3 Orientation: 0-Oriented Tacttile Disturbances: 1-Very Mild Itch/Numbness Auditory Disturbances: 0-None Visual Disturbances: 0-None Headache: 0-None Present CIWA-Ar Total Score: 12 BHS COWS - Scale Resting Pulse: 2= [place] 101-120 Sweatin=Flushed/Facial Moisture Restless Observation: 1= Difficult to Sit Still Pupil Size: 1= Pupils >than Normal Bone or Joint Aches: 1= Mild Discomfort Runny Nose/ Eye Tearin= Nasal Congestion GI Upset > 30mins: 1= Stomach Cramp Tremor Observation of Outstretched Hands: 1= Tremor [place], Not Seen Yawning Observation: 0= None Anxiety or Irritability: 1=Feels Anxious/Irritable Goose Flesh Skin: 0=Smooth Skin COWS Score: 11 S Progress Note (SOAP) Subjective: interrupted sleep, sweats, Objective: 02/20/17 10:25 Vital Signs Temperature 96.4 F L 02/20/17 06:06 Pulse Rate 102 H 02/20/17 06:06 Respiratory Rate 20 02/20/17 06:06 Blood Pressure 132/72 02/20/17 06:06 O2 Sat by Pulse Oximetry (%) Laboratory Tests 02/18/17 02/19/17 02/19/17 18:57 06:00 06:00 WBC 8.6 D RBC 4.63 Hgb 13.0 Hct 40.7 MCV 87.8 MCH 27.9 MCHC 31.8 L RDW 16.6 H Plt Count 263 D MPV 9.5 Sodium 143 Potassium 3.7 Chloride 108 H Carbon Dioxide 30 Anion Gap 5 L BUN 14 Creatinine 0.8 Creat Clearance w eGFR > 60 Random Glucose 100 Calcium 8.3 L Total Bilirubin 0.5 D AST 9 L D ALT 23 D Alkaline Phosphatase 64 D Total Protein 6.3 L Albumin 3.2 L Urine Color Yellow Urine Appearance Cloudy Urine pH 5.0 D Ur Specific [place] 1.031 Urine Protein Negative Urine Glucose (UA) Negative Urine Ketones Negative Urine Blood Negative Urine Nitrite Negative Urine Bilirubin Negative Urine Urobilinogen Negative Ur Leukocyte Esterase Negative RPR Titer 02/19/17 06:00 WBC RBC Hgb Hct MCV MCH MCHC RDW Plt Count MPV Sodium Potassium Chloride Carbon Dioxide Anion Gap BUN Creatinine Creat Clearance w eGFR Random Glucose Calcium Total Bilirubin AST ALT Alkaline Phosphatase Total Protein Albumin Urine Color Urine Appearance Urine pH Ur Specific [place] Urine Protein Urine Glucose (UA) Urine Ketones Urine Blood Urine Nitrite Urine Bilirubin Urine Urobilinogen Ur Leukocyte Esterase RPR Titer Nonreactive pt aox3 in n nad ambulating Assessment: 02/20/17 10:25 withdrawal sx;s Plan: cont. detox increase fluids
--- NOTE | 2017-02-20 14:38 | PN ---
[facility] Progress Note Note: Psychiatry Attending's note : Approached by patient. Reason : request for trazodone at bedtime. Sleep hygiene discussed with the patient. Side effects/benefits reviewed. Trazodone 50 mg po hs.Ordered. Last prescribed trazodone (10/2016).
[2017-02-20] MEDS: chlordiazePOXIDE 5 MG CAPSULE PO SCH ×2 (17:27→22:02)
[2017-02-20] MEDS: THIAMINE HCL 100 MG TABLET (FP) PO SCH (22:01)
[2017-02-20] MEDS: traZODone HCL 50 MG TABLET (FP) PO SCH (22:02)
[2017-02-21] MEDS: chlordiazePOXIDE 5 MG CAPSULE PO SCH ×2 (05:20→10:31)
[2017-02-21] MEDS: METHADONE HCL 5 MG TABLET (FOR DETOX USE ONLY) PO SCH (10:31)
[2017-02-21] MEDS: PRENATAL VITAMINS W/ FOLIC ACID TABLET (FP) PO SCH (10:32)
[2017-02-21] MEDS ORDERED: ALBUTEROL SO4 2.5/IPRATROPIUM 0.5 INH SOL 3 ML VIAL.NEB. NEB PRN (10:40)
[2017-02-21] MEDS ORDERED: ALBUTEROL SO4 2.5/IPRATROPIUM 0.5 INH SOL 3 ML VIAL.NEB. NEB ONE (10:45)
[2017-02-21] MEDS: cloNIDine HCL 0.1 MG TABLET PO SCH ×2 (11:17→22:08)
--- NOTE | 2017-02-21 15:45 | PN ---
BHS Progress Note (SOAP) Subjective: Sweating,interrupted sleep,restless Objective: 02/21/17 15:44 Vital Signs - 8 hr 02/21/17 02/21/17 10:00 14:16 Temperature 96.8 F L 98.8 F Pulse Rate 119 H 120 H Respiratory 20 16 Rate Blood Pressure 117/75 122/77 Laboratory Tests 02/18/17 02/19/17 02/19/17 18:57 06:00 06:00 WBC 8.6 D RBC 4.63 Hgb 13.0 Hct 40.7 MCV 87.8 MCH 27.9 MCHC 31.8 L RDW 16.6 H Plt Count 263 D MPV 9.5 Sodium 143 Potassium 3.7 Chloride 108 H Carbon Dioxide 30 Anion Gap 5 L BUN 14 Creatinine 0.8 Creat Clearance w eGFR > 60 Random Glucose 100 Calcium 8.3 L Total Bilirubin 0.5 D AST 9 L D ALT 23 D Alkaline Phosphatase 64 D Total Protein 6.3 L Albumin 3.2 L Urine Color Yellow Urine Appearance Cloudy Urine pH 5.0 D Ur Specific [place] 1.031 Urine Protein Negative Urine Glucose (UA) Negative Urine Ketones Negative Urine Blood Negative Urine Nitrite Negative Urine Bilirubin Negative Urine Urobilinogen Negative Ur Leukocyte Esterase Negative RPR Titer 02/19/17 06:00 WBC RBC Hgb Hct MCV MCH MCHC RDW Plt Count MPV Sodium Potassium Chloride Carbon Dioxide Anion Gap BUN Creatinine Creat Clearance w eGFR Random Glucose Calcium Total Bilirubin AST ALT Alkaline Phosphatase Total Protein Albumin Urine Color Urine Appearance Urine pH Ur Specific [place] Urine Protein Urine Glucose (UA) Urine Ketones Urine Blood Urine Nitrite Urine Bilirubin Urine Urobilinogen Ur Leukocyte Esterase RPR Titer Nonreactive labs noted Assessment: 02/21/17 15:44 Withdrawal sx. Plan: Continue detox
[2017-02-21] MEDS: chlordiazePOXIDE HCL 10 MG CAPSULE PO SCH ×2 (17:09→22:08)
[2017-02-21] MEDS: THIAMINE HCL 100 MG TABLET (FP) PO SCH (22:08)
[2017-02-21] MEDS: traZODone HCL 50 MG TABLET (FP) PO SCH (22:08)
[2017-02-21] MEDS: ALBUTEROL SO4 18 GM HFA INHALER IH PRN (22:08)
[2017-02-22] MEDS: chlordiazePOXIDE HCL 10 MG CAPSULE PO SCH ×2 (05:44→10:14)
--- NOTE | 2017-02-22 09:58 | PN ---
S Progress Note (SOAP) Subjective: Sweating,interrupted sleep,restless. C/O swelling & tender rt. 2nd toe x 2 wks. Pt. is afebrile Objective: 02/22/17 09:56 Vital Signs 02/22/17 02/22/17 02/22/17 03:30 06:00 09:41 Temperature 98.6 F 97.3 F L Pulse Rate 95 H 113 H Respiratory 16 18 18 Rate Blood Pressure 109/60 105/70 Extremity : Rt. 2nd toe is swollen & tender, there's a puncture wound in the medial aspect of toe. Assessment: 02/22/17 09:58 Withdrawal sx. Cellulitis Plan: Continue detox Bacitracin oin't Augmentin 875mg bid
[2017-02-22] MEDS ORDERED: METHADONE HCL 10 MG TABLET (FOR DETOX USE ONLY) PO SCH (10:00)
[2017-02-22] MEDS: PRENATAL VITAMINS W/ FOLIC ACID TABLET (FP) PO SCH (10:14)
[2017-02-22] MEDS: cloNIDine HCL 0.1 MG TABLET PO SCH ×2 (10:14→22:06)
[2017-02-22] MEDS: AMOX TR/POT CLAV 875MG/125MG TABLETS (FP) PO SCH ×2 (10:16→17:01)
[2017-02-22] MEDS: BACITRACIN 0.9 GM PACKET TP SCH ×4 (10:16→22:06)
[2017-02-22] MEDS: ALBUTEROL SO4 18 GM HFA INHALER IH PRN (15:59)
[2017-02-22] MEDS: ACETAMINOPHEN 325 MG TABLET (FP) PO PRN (17:53)
[2017-02-22] MEDS: traZODone HCL 50 MG TABLET (FP) PO SCH (22:06)
[2017-02-22] MEDS: THIAMINE HCL 100 MG TABLET (FP) PO SCH (22:06)
[2017-02-23] MEDS ORDERED: METHADONE HCL 5 MG TABLET (FOR DETOX USE ONLY) PO SCH (06:00)
[2017-02-23 06:21] VITALS: BP 111/71; PULSE 96; TEMP 96.8
[2017-02-23] MEDS: AMOX TR/POT CLAV 875MG/125MG TABLETS (FP) PO SCH (06:45)
--- NOTE | 2017-02-23 08:11 | DS ---
[facility] Detox Discharge Summary Admission Date: 02/18/17 Discharge Date: 02/23/17 - History Present History: Alcohol Dependence, Cocaine Dependence, Opioid Dependence Additional Comments: follow up with after care program as arrangement Pertinent Past History: weight loss insomnia,anxiety,depression asthma - Physical Exam Results Vital Signs: Vital Signs Temperature 96.8 F L 02/23/17 06:20 Pulse Rate 96 H 02/23/17 06:20 Respiratory Rate 18 02/23/17 06:20 Blood Pressure 111/71 02/23/17 06:20 O2 Sat by Pulse Oximetry (%) Pertinent Admission Physical Exam Findings: withdrawal symptom - Treatment Hospital Course: Detox Protocol Followed, Detoxed Safely, Responded well, Discharged Condition Good, Rehab Referral Accepted Patient has Accepted a Rehab Referral to: [facility] - Medication Discharge Medications: Ambulatory Orders Albuterol Sulfate Inhaler - [Ventolin HFA Inhaler -] 2 inh IH Q4H PRN #1 amp Trazodone HCl [Desyrel -] 50 mg PO HS #30 tablet 02/20/17 Amox-Tr/K Cl [Augmentin 875-125mg Tablet -] 1 tab PO BID@0800,1730 #12 tablet Trazodone HCl [Desyrel -] 50 mg PO HS #30 tablet 02/22/17 - Diagnosis (1) Opioid dependence with withdrawal Status: Chronic (2) Alcohol dependence with uncomplicated withdrawal Status: Chronic (3) Cocaine dependence Status: Chronic Qualifiers: Substance use status: uncomplicated Qualified Code(s): F14.20 - Cocaine dependence, uncomplicated (4) Asthma Status: Acute Qualifiers: Asthma severity: mild Asthma persistence: intermittent Asthma complication type: uncomplicated Qualified Code(s): J45.20 - Mild intermittent asthma, uncomplicated (5) Insomnia secondary to depression with anxiety Status: Acute (6) Weight loss Status: Acute (7) Cellulitis of second toe, right Status: Acute - AMA Did Patient Leave Against Medical Advice: No
== END 2017-02-23 06:45 | disposition home or self-care (01) | DRG 773 ==
LOC: YASAS 10:49 → Y6N 13:58
PROVIDERS: ADMIT Internal Medicine; ATTEND Internal Medicine
PROC: HZ2ZZZZ Detoxification Services for Substance Abuse Treatment (ICD-10-PCS; principal; 2017-02-18)
DX: F11.23 Opioid dependence with withdrawal (principal); F14.20 Cocaine dependence, uncomplicated; F19.24 Other psychoactive substance dependence with psychoactive substance-induced mood disorder; F51.05 Insomnia due to other mental disorder; L03.031 Cellulitis of right toe; J45.909 Unspecified asthma, uncomplicated; R63.4 Abnormal weight loss; Z68.23 Body mass index [BMI] 23.0-23.9, adult
CPT/HCPCS: 36415; 80053; 81003; 85027; 86593; 93005; 93010; 94640